=== PATIENT | female | born 1995 | race Caucasian/White ===

== ENCOUNTER 2018-02-10 18:32 | Emergency (ER) | payer SELFPAY, OTHER | END 2018-02-10 19:42 | disposition left against medical advice (07) | LOC: FTE 18:32 | DX: Z53.21 Procedure and treatment not carried out due to patient leaving prior to being seen by health care provider (principal) ==

== ENCOUNTER 2018-05-06 13:30 | Emergency (ER) | payer OTHER ==
[2018-05-06] MEDS: SOD CHLORIDE 0.9% 1,000 ML IV (15:46)
[2018-05-06] MEDS: AMOXICILLIN 500 MG CAP PO (15:46)
[2018-05-06] MEDS: METOCLOPRAMIDE 10 MG INJ IV (15:46)
[2018-05-06 15:47] LABS: ADD MAN DIFF? NO
[2018-05-06] MEDS: ACETAMINOPHEN 325 MG TAB PO (15:47)
[2018-05-06 15:50] LABS: WHITE BLOOD COUNT 11.4 10^3/ul (4.8-10.8)
[2018-05-06 15:50] LABS: ABNORMAL IP MESSAGE 1; BASOPHILS % 0.2 % (0.0-2.0); EOSINOPHILS % 0.1 % (0.0-7.0); HEMATOCRIT 36.6 % (37.0-47.0); HEMOGLOBIN 12.5 g/dl (12.0-16.0); LYMPHOCYTES # 0.5 10^3/ul (0.8-2.9); LYMPHOCYTES % 3.9 % (15.0-51.0); MEAN CORPUSCULAR HEMOGLOBIN 30.3 pg (29.0-33.0); MEAN CORPUSCULAR HGB CONC 34.2 g/dl (32.0-37.0); MEAN CORPUSCULAR VOLUME 88.6 fl (82.0-101.0); MEAN PLATELET VOLUME 11.1 fl (7.4-10.4); MONOCYTE # 0.4 10^3/ul (0.3-0.9); MONOCYTES % 3.7 % (0.0-11.0); NEUTROPHIL # 10.5 10^3/ul (1.6-7.5); NEUTROPHILS % 91.6 % (39.0-77.0); PLATELET COUNT 171 10^3/UL (140-415); RED BLOOD COUNT 4.13 10^6/ul (4.20-5.40); RED CELL DISTRIBUTION WIDTH 13.1 % (11.5-14.5)
[2018-05-06 16:13] LABS: ALANINE AMINOTRANSFERASE 24 IU/L (13-69); ALBUMIN 3.6 g/dl (3.3-4.9); ALBUMIN/GLOBULIN RATIO 1.02; ALKALINE PHOSPHATASE 81 IU/L (42-121); ANION GAP 16 (8-16); ASPARTATE AMINO TRANSFERASE 20 IU/L (15-46); BILIRUBIN,INDIRECT 0.8 mg/dl (0-1.1); BILIRUBIN,TOTAL 0.8 mg/dl (0.2-1.3); BLOOD UREA NITROGEN 5 mg/dl (7-20); CALCIUM 9.3 mg/dl (8.4-10.2); CARBON DIOXIDE 23 mmol/L (21-31); CHLORIDE 103 mmol/L (97-110); CREATININE 0.44 mg/dl (0.44-1.00); GLUCOSE 83 mg/dl (70-220); POTASSIUM 3.9 mmol/L (3.5-5.1); SODIUM 138 mmol/L (135-144); TOTAL PROTEIN 7.1 g/dl (6.1-8.1)
[2018-05-06 16:53] LABS: ADD UMIC NO; UR ASCORBIC ACID 20 mg/dL (NEGATIVE); UR BILIRUBIN (Dip) NEGATIVE (NEGATIVE); UR BLOOD (Dip) NEGATIVE (NEGATIVE); UR CLARITY SLIGHTLY CLOUDY (CLEAR); UR COLOR YELLOW (YELLOW); UR GLUCOSE (Dip) NEGATIVE (NEGATIVE); UR KETONES (Dip) 2+ mg/dL (NEGATIVE); UR LEUKOCYTE ESTERASE (Dip) NEGATIVE Leu/ul (NEGATIVE); UR MUCUS FEW /HPF (NONE SEEN); UR NITRITE (Dip) NEGATIVE (NEGATIVE); UR RBC 1 /HPF (0-5); UR SQUAMOUS EPITHELIAL CELL FEW /HPF (FEW); UR TOTAL PROTEIN (Dip) NEGATIVE (NEGATIVE); UR UROBILINOGEN (Dip) 2+ mg/dL (NEGATIVE); UR WBC 2 /HPF (0-5)
== END 2018-05-06 17:36 | disposition home or self-care (01) ==
LOC: FTE 13:30
DX: O99.512 Diseases of the respiratory system complicating pregnancy, second trimester (principal); J02.9 Acute pharyngitis, unspecified; Z3A.20 20 weeks gestation of pregnancy
CPT/HCPCS: 36415; 76805; 80053; 81001; 81003; 85025; 96361; 96374; 99285-25

== ENCOUNTER 2018-09-18 17:55 | Inpatient (IN) | payer OTHER ==
[~2018-09-18 17:55] MED LIST: METHYLERGONOVINE 0.2 MG INJ
[2018-09-18] MEDS ORDERED: LACTATED RINGER'S 1,000 ML IV (20:10)
[2018-09-18 20:14] LABS: ADD MAN DIFF? NO
[2018-09-18 20:17] LABS: WHITE BLOOD COUNT 9.3 10^3/ul (4.8-10.8)
[2018-09-18 20:17] LABS: BASOPHILS % 0.2 % (0.0-2.0); EOSINOPHILS # 0.1 10^3/ul (0.0-0.5); EOSINOPHILS % 0.9 % (0.0-7.0); HEMATOCRIT 42.9 % (37.0-47.0); HEMOGLOBIN 14.3 g/dl (12.0-16.0); LYMPHOCYTES # 1.4 10^3/ul (0.8-2.9); LYMPHOCYTES % 15.1 % (15.0-51.0); MEAN CORPUSCULAR HEMOGLOBIN 29.8 pg (29.0-33.0); MEAN CORPUSCULAR HGB CONC 33.3 g/dl (32.0-37.0); MEAN CORPUSCULAR VOLUME 89.4 fl (82.0-101.0); MEAN PLATELET VOLUME 12.3 fl (7.4-10.4); MONOCYTE # 0.3 10^3/ul (0.3-0.9); MONOCYTES % 3.7 % (0.0-11.0); NEUTROPHIL # 7.4 10^3/ul (1.6-7.5); NEUTROPHILS % 79.6 % (39.0-77.0); PLATELET COUNT 160 10^3/UL (140-415); RED CELL DISTRIBUTION WIDTH 13.2 % (11.5-14.5)
[2018-09-18 20:20] LABS: INR 0.83; PROTIME 11.5 Sec (11.9-14.9); PT RATIO 0.9
[2018-09-18 20:21] LABS: PARTIAL THROMBOPLASTIN TIME 23.2 Sec (23.0-35.0)
[2018-09-18 20:26] LABS: ADD UMIC NO; UR ASCORBIC ACID NEGATIVE (NEGATIVE); UR BILIRUBIN (Dip) NEGATIVE (NEGATIVE); UR BLOOD (Dip) NEGATIVE (NEGATIVE); UR CLARITY CLEAR (CLEAR); UR COLOR YELLOW (YELLOW); UR GLUCOSE (Dip) NEGATIVE (NEGATIVE); UR KETONES (Dip) NEGATIVE (NEGATIVE); UR LEUKOCYTE ESTERASE (Dip) NEGATIVE Leu/ul (NEGATIVE); UR NITRITE (Dip) NEGATIVE (NEGATIVE); UR SPECIFIC GRAVITY (Dip) 1.006 (1.003-1.030); UR TOTAL PROTEIN (Dip) NEGATIVE (NEGATIVE); UR UROBILINOGEN (Dip) NEGATIVE (NEGATIVE)
[2018-09-18] MEDS: CITRIC ACID/NA CITRATE 30 ML CUP PO (20:29)
[2018-09-18] MEDS: LACTATED RINGER'S 1,000 ML IV (20:29)
[2018-09-18] MEDS ORDERED: CARBOPROST 250 MCG INJ IM ×2 (20:30→22:30)
[2018-09-18] MEDS ORDERED: OXYTOCIN 30 UNITS/LR 500 ML IV ×4 (20:30→22:30)
[2018-09-18] MEDS ORDERED: METHYLERGONOVINE 0.2 MG INJ IM ×2 (20:30→22:30)
[2018-09-18] MEDS ORDERED: MISOPROSTOL 200 MCG TAB PR ×2 (20:30→22:30)
[2018-09-18] MEDS ORDERED: ONDANSETRON 4 MG INJ (20:44)
[2018-09-18] MEDS ORDERED: METOCLOPRAMIDE 10 MG INJ (20:44)
[2018-09-18] MEDS ORDERED: KETOROLAC 30 MG INJ (20:44)
[2018-09-18] MEDS ORDERED: morphine SULFATE/PF (10 MG/10 ML) INJ (20:47)
[2018-09-18 20:53] LABS: HEPATITIS B SURFACE ANTIGEN NEGATIVE (NEGATIVE)
[2018-09-18] MEDS ORDERED: PHENYLephrine (100 MCG/ML) 10ML SYG (20:55)
[2018-09-18] MEDS ORDERED: EPHEDrine 25 MG/5 ML SYG (21:39)
[2018-09-18] MEDS: CEFAZOLIN 2 GM/50 ML (PMX) 50 ML IVPB ×2 (22:17→23:34)
[2018-09-18] MEDS ORDERED: DIPHENHYDRAMINE 50 MG INJ IV ×3 (22:30)
[2018-09-18] MEDS ORDERED: ONDANSETRON 4 MG INJ IV ×2 (22:30)
[2018-09-18] MEDS ORDERED: morphine 2 MG INJ IV ×6 (22:30)
[2018-09-18] MEDS ORDERED: NALOXONE (0.4 MG/ML) INJ IV ×2 (22:30)
[2018-09-18] MEDS ORDERED: morphine (1 MG/ML) 10ML SYRINGE IV ×3 (22:30)
[2018-09-18] MEDS ORDERED: NACL 0.9% 3 ML SYG IV (22:30)
[2018-09-18] MEDS ORDERED: KETOROLAC 30 MG INJ IV ×2 (22:30)
[2018-09-18] MEDS ORDERED: OXYCODONE/ACETAMINOPHEN (5/325) TAB PO (22:30)
[2018-09-18] MEDS: ONDANSETRON 4 MG INJ IV (23:28)
[2018-09-19] MEDS ORDERED: METOCLOPRAMIDE 10 MG INJ (00:34)
[2018-09-19] MEDS: METOCLOPRAMIDE 10 MG INJ IV (00:36)
[2018-09-19] MEDS: OXYTOCIN 30 UNITS/LR 500 ML IV (02:16)
[2018-09-19] MEDS: CEFAZOLIN 2 GM/50 ML (PMX) 50 ML IVPB ×2 (06:27→15:14)
[2018-09-19 07:44] LABS: ADD MAN DIFF? NO
[2018-09-19 07:55] LABS: WHITE BLOOD COUNT 13.8 10^3/ul (4.8-10.8)
[2018-09-19 07:55] LABS: BASOPHILS % 0.2 % (0.0-2.0); HEMATOCRIT 39.3 % (37.0-47.0); HEMOGLOBIN 12.9 g/dl (12.0-16.0); LYMPHOCYTES # 0.7 10^3/ul (0.8-2.9); LYMPHOCYTES % 4.7 % (15.0-51.0); MEAN CORPUSCULAR HEMOGLOBIN 29.7 pg (29.0-33.0); MEAN CORPUSCULAR HGB CONC 32.8 g/dl (32.0-37.0); MEAN CORPUSCULAR VOLUME 90.6 fl (82.0-101.0); MEAN PLATELET VOLUME 12.4 fl (7.4-10.4); MONOCYTE # 0.4 10^3/ul (0.3-0.9); MONOCYTES % 2.8 % (0.0-11.0); NEUTROPHIL # 12.6 10^3/ul (1.6-7.5); NEUTROPHILS % 91.7 % (39.0-77.0); PLATELET COUNT 135 10^3/UL (140-415); RED BLOOD COUNT 4.34 10^6/ul (4.20-5.40); RED CELL DISTRIBUTION WIDTH 13.2 % (11.5-14.5)
[2018-09-19] MEDS: SENNA/DOCUSATE NA (8.6MG/50MG) TAB PO ×2 (09:41→21:20)
[2018-09-19 19:43] LABS: RAPID PLASMA REAGIN NONREACTIVE (NR)
[2018-09-19] MEDS: KETOROLAC 30 MG INJ IV (21:20)
[2018-09-19] MEDS: IBUPROFEN 600 MG TAB PO (23:00)
[2018-09-20] MEDS: OXYCODONE/ACETAMINOPHEN (5/325) TAB PO (02:03)
[2018-09-20] MEDS: IBUPROFEN 600 MG TAB PO ×5 (05:54→23:38)
[2018-09-20] MEDS: SENNA/DOCUSATE NA (8.6MG/50MG) TAB PO ×2 (08:37→20:38)
[2018-09-21] MEDS: IBUPROFEN 600 MG TAB PO ×2 (05:32→12:00)
[2018-09-21] MEDS: SENNA/DOCUSATE NA (8.6MG/50MG) TAB PO (09:44)
== END 2018-09-21 12:40 | disposition home or self-care (01) | DRG 788 ==
LOC: OBT 17:55 → PP1 09-19 01:27 → L-D 17:56 → OBT 18:50 → L-D 18:50
PROVIDERS: Obstetrics & Gynecology
PROC: 10D00Z1 Extraction of Products of Conception, Low, Open Approach (ICD-10-PCS; principal; 2018-09-18 21:00)
DX: O34.211 Maternal care for low transverse scar from previous cesarean delivery (principal); Z3A.39 39 weeks gestation of pregnancy; Z37.0 Single live birth
CPT/HCPCS: 81003; 85025; 85610; 85730; 86592; 86850; 86900; 86901; 87340; 99464

== ENCOUNTER 2019-01-13 19:18 | Emergency (ER) | payer OTHER ==
[2019-01-13] MEDS: predniSONE 20 MG TAB PO (22:10)
[2019-01-13] MEDS: CEFTRIAXONE 1 GM INJ IM (22:10)
[2019-01-13] MEDS: KETOROLAC 30 MG INJ IM (22:12)
== END 2019-01-13 22:44 | disposition home or self-care (01) ==
LOC: FTE 19:18
DX: H60.91 Unspecified otitis externa, right ear (principal)
CPT/HCPCS: 81003; 81025; 96372; 99284-25